=== PATIENT | male | born 1940 | race Caucasian/White ===

== ENCOUNTER 2024-05-03 18:33 | Inpatient (IN) | payer OTHER, SELFPAY ==
[2024-05-03 14:05] LABS: % Basophils 0.2 % (0-2); % Eosinophils 0.3 % (0-6); % Immature Granulocytes 0.4 % (0-0.5); % Lymphocytes 9.5 % (20.5-51.1); % Monocytes 7.6 % (1.7-9.3); Absolute Eosinophils 0.1 10^3/uL (0-0.7); Absolute Immature Granulocytes 0.1 10^3/uL (0-0.05); Absolute Lymphocytes 1.7 10^3/uL (1.2-3.4); Absolute Monocytes 1.4 10^3/uL (0.1-0.6); Absolute Neutrophils 15.1 10^3/uL (1.4-6.5); Hematocrit 38.1 % (39.0-52.0); Mean Corp Hgb Conc. 34.1 g/dL (33.0-37.0); Mean Corpuscular Hgb 30.3 pg (27.0-31.0); Mean Corpuscular Volume 88.8 fL (80.0-94.0); Mean Platelet Volume 10.5 fL (7.4-10.4); Nucleated Red Blood Cells % 0 % (-); Platelet Count 230 10^3/uL (130-400); Red Blood Cell Count 4.29 10^6/uL (4.70-6.10); Red Cell Dist. Width 14.1 % (11.5-14.5); White Blood Cell Count 18.4 10^3/uL (4.8-10.8)
[2024-05-03 14:55] LABS: ALT (SGPT) 16 U/L (0-50); AST (SGOT) 29 U/L (17-59); Albumin 3.8 g/dl (3.5-5.0); Alkaline Phosphatase 87 U/L (38-126); Blood Urea Nitrogen 30 mg/dl (9-20); Calcium 9.4 mg/dl (8.4-10.2); Carbon Dioxide 27 mmol/L (22-30); Chloride 97 mmol/L (98-107); Glucose 120 mg/dl (70-99); Potassium 3.2 mmol/L (3.5-5.1); Sodium 134 mmol/L (135-145); Total Bilirubin 1.9 mg/dl (0.2-1.3); Total Protein 6.7 g/dl (6.3-8.2); eGFR 49.25
--- NOTE | 2024-05-03 15:21 | ED.GENMED ---
History of Present Illness
General
Chief Complaint: Weakness
Source: patient and spouse
Exam Limitations: none
Time Seen by Provider: 05/03/24 15:06
Nursing documentation reviewed up to this point in time: agreed with
History of Present Illness
History of Present Illness:
83-year-old male with a past medical history of hypertension, hyperlipidemia, PE on Eliquis who presents to the emergency department with his for evaluation of weakness. Patient had significant fall about 3 months ago down 17 stairs and was
seen at [facility]�he had no serious injuries but had some neck pain the fall had profound weakness/fatigue after the fall. Patient was seeing physical therapy and was making his steady gradual improvement until a few days ago when
he had another trip and fall this time from ground-level while on vacation. He sustained a serious injury to the left knee and had frontal head trauma. He was apparently seen in the emergency room in [place]�apparently left patellar
fracture (per report, ~10mm separation) but no other serious injuries. He had lacerations to the forehead that were repaired with sutures and he had his tetanus updated. He was ultimately discharged home. He returned home last night but says
that he has been so profoundly weak and limited due to his left knee injury that they are unable to care for him and he is unable to care for himself. The patient admits to feeling weak and says that his left knee hurts with certain movements but
denies any other specific complaints.
Review of Systems
Review of Systems
All Other Systems: ROS reviewed and negative except as documented in HPI and ROS
Constitutional: Reports fatigue; Denies fever
Respiratory: Denies trouble breathing
Cardiac: Denies chest pain
ABD/GI: Denies abdominal pain or vomiting
Musculoskeletal: Reports joint pain and neck pain; Denies back pain
Neurological: Denies headache
Phy Exam
Physical Exam
Physical Exam:
General: Laying in bed eyes open but wakes to my entering, oriented x 3 and not in distress
Head: Normocephalic, forehead lacerations repaired with stitches no signs of acute infection
Eyes: Conjunctiva normal, EOMI
Throat: Airway intact, handling secretions
Neck: Trachea midline, supple without meningismus
Lungs: Mild tachypnea, normal pulse ox on room air, lungs clear to auscultation bilaterally, no wheezing, rales, rhonchi
Heart: Tachycardia with regular rhythm, no murmurs, gallops, or rubs
Abd: Soft, non distended, nontender
Neuro: No gross deficits
Skin: Lacerations as above, no signs of infection
Extremities: Patient has bruising and swelling of left knee, tenderness of left patella, limited ROM in left knee due to pain; no signs of acute trauma to rest of extremities; extremities are warm and well perfused
Scores
Heart Failure Risk
Heart Failure Risk Score: Not Applicable
Heart Score for Chest Pain Patients
STEMI patient?: Not applicable
Withdrawal Assessment of Alcohol
Withdrawal Assessment Completed?: Not applicable
Course
Orders/Labs/Results
Orders:
Orders
05/03/24 13:46
Electrocardiogram (*1) Urgent
Reason for Study: Fatigue / Weakness
EKG- Treatment ONCE
05/03/24 13:54
Complete Blood Count/With Diff Urgent
Comprehensive Metabolic Panel Urgent
05/03/24 15:20
Electrocardiogram (*1) Urgent
Reason for Study: Fatigue / Weakness
Case Management Consult ONCE
Case Management Consult: Detention Placement
EKG- Treatment ONCE
Urinalysis Reflex To Culture Urgent
Date Specimen was Collected: 05/03/24
Time Specimen was Collected: 15:51
CR Chest Portable - 1 View Urgent
Comment:
Reason For Exam: tachpnea, tachycardia, weakness
Reason Study Needs to be Portable: Unable to Transport
Pt Eval And Treat Urgent
Activity Level: With Assistance
05/03/24 15:21
0.9% Sodium Chloride 1000 ml [Nss] 1,000 ml IV BOLUS
Potassium Chloride [KCl] 40 meq PO NOW STA
Abnormal Lab Results
05/03/24
13:54
WBC 18.4 H 10^3/uL
(4.8-10.8)
RBC 4.29 L 10^6/uL
(4.70-6.10)
Hct 38.1 L %
(39.0-52.0)
MPV 10.5 H fL
(7.4-10.4)
Abs Immat Gran (auto) 0.1 H 10^3/uL
(0-0.05)
Absolute Neuts (auto) 15.1 H 10^3/uL
(1.4-6.5)
Absolute Monos (auto) 1.4 H 10^3/uL
(0.1-0.6)
Neutrophils % 82.0 H %
(42.2-75.2)
Lymphocytes % 9.5 L %
(20.5-51.1)
Sodium 134 L mmol/L
(135-145)
Potassium 3.2 L mmol/L
(3.5-5.1)
Chloride 97 L mmol/L
(98-107)
BUN 30 H mg/dl
(9-20)
Creatinine 1.4 H mg/dL
(0.7-1.3)
Glucose 120 H mg/dl
(70-99)
Total Bilirubin 1.9 H mg/dl
(0.2-1.3)
05/03/24 13:54
05/03/24 13:54
Vital Signs
Initial and Last Documented VS:
Initial Vital Signs
Temp Pulse Resp Pulse Ox
36.7 C 95 16 98
05/03/24 13:43 05/03/24 13:43 05/03/24 13:43 05/03/24 13:43
Last Documented Vital Signs
Temp Pulse Resp BP Pulse Ox
36.7 C 95 16 114/61 98
05/03/24 13:43 05/03/24 13:43 05/03/24 13:43 05/03/24 17:04 05/03/24 13:43
MDM/Problems Addressed
Differential Diagnosis Includes:
Weakness: Physical deconditioning, anemia, dehydration, electrolyte derangement, infection
MDM/Problems Addressed:
83-year-old male with history as documented presents for evaluation of profound weakness and inability to care for himself in the setting of multiple recent falls. He has tachypnea and tachycardia but otherwise normal vital signs. His physical
exam is as above. Will plan to check basic lab work including a CBC, CMP, urinalysis. Will check a chest x-ray and an EKG. Will provide IV fluids. Consult to physical therapy and case management.
Labs reviewed: CBC shows a leukocytosis to 18�no clear infectious source could be hemoconcentration or reactive. His CMP shows JENNIFER with a creatinine of 1.4 and a potassium of 3.2�given IV fluids and p.o. potassium. Chest x-ray shows no acute
disease. EKG shows a sinus rhythm. Awaiting urinalysis. Patient was seen by PT and recommended for inpatient rehab. Case management at bedside, unable to place today will work on placement over the next 24 to 48 hours. Admit to the hospitalist
service pending placement. Case discussed with hospitalist for admission.
*Pulse Oximetry
Patient hypoxic: no
*Critical Care Note
Total Time (30-74mins, 75-104mins- exclusive of procedures): Not Applicable
Data Reviewed
Review of Other/Old Records Reveals: Radiology Studies (reviewed external radiology reports from hospital in [place] (obtained via fax))
Source: patient and records
Patient Management
Social determinants of health affecting care: Living situation
Discussion with other providers: Hospitalist (Discussed with hospitalist) and Other (Discussed with rn field case manager, discussed with physical therapist)
Escalation/DeEscalation of care consider admission/obs:
Admission indicated
ED Attending Note
-
Portions of this chart may have been created with voice recognition software.� Occasional wrong word or��sound alike� substitutions may have occurred due to the inherent limitations of voice recognition software.
Discharge Plan
Departure
Patient Disposition: Admit
Date of Disposition: 05/03/24
Time of Disposition: 17:07
Admit to doctor: Paolo
Presentation/result/management discussed w/ accepting MD/DO: Hospitalist
Discharge Problem:
Fracture of left patella, Weakness generalized, Physical deconditioning
Referrals:
Gale Kaplan NP [Family Provider] -
Interventions
Interventions:
*Risk Screen - Suicide Last Done: 05/03/24 15:52
*General Assessment Last Done: 05/03/24 15:52
*Neglect/Abuse Screening Last Done: 05/03/24 15:52
ED- Fall Risk Assessment Last Done: 05/03/24 15:52
ED- Cardiac Assessment Last Done: 05/03/24 15:52
ED- Neurological Assessment Last Done: 05/03/24 15:52
ED- Pulmonary Assessment Last Done: 05/03/24 15:52
Discharge Date and Time
Print Language: GHANAIAN
[2024-05-03] MEDS: KCL 40 MEQ PO (15:30)
[2024-05-03] MEDS: NSS 1000 IV ×2 (15:38→21:49)
[2024-05-03 15:52] VITALS: BMI 27.5
--- NOTE | 2024-05-03 16:25 | CM ---
CM following re: discharge planning.
CM consulted to assist pt with SNF placement.
Reviewed pt's chart, met with pt. Pt's spouse Peyton and daughter at bedside.
Pt is an 83 year old male, arrived to ED with primary concerns of weakness.
Pt lives with spouse in [facility] [place] [facility], 2SH, 2 steps to enter, has 4 supportive children. 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 Pt's spouse stated she wants the best SNF for her and following SNFs
preferred: [facility], [facility], [facility] and/or [facility]. Pt's spouse is aware that pt will be seen by PT and OT and CM will follow up with their recommendations.
Pt has [employer] Medicare insurance. Policy: [id number]
PCP: Gale Kaplan
Pharmacy: [facility]
D/C plan: preferred SNF. CM will make a referral after PT/OT evaluations.
CM will follow to assist pt with discharge to a preferred SNF.
[2024-05-03 16:50] VITALS: BP 105/65; BP 130/60; PULSE 84; O2SAT 97
[2024-05-03 17:04] VITALS: BP 114/61
[2024-05-03 17:05] VITALS: BP 101/64
--- NOTE | 2024-05-03 17:23 | HPS.HSE ---
Addendum entered and electronically signed by MARCIE Rogers 05/03/24 19:38:
Records requested from [facility] for CT PE study and pulmonary consult from December proximal January 2024 to evaluate patient's PE he is on Eliquis for
Patient will require surgery for patellar fracture
Discussed case with Dr. Arianne Chapman who states can hold Eliquis for 48 hours patient did take this morning 05/03/2024 then placed on heparin gtt 05/05/2024 and pause heparin before procedure
Hold current Eliquis
-Will start heparin on 05/05/2024
-[facility] will look at OR schedule for possible 05/07/2024 OR
Addendum entered and electronically signed by MARCIE Rogers 05/03/24 19:03:
Patellar fracture left knee
Left knee joint effusion
Per Ortho check CT left knee
Nonweightbearing
Knee immobilizer worn at all times
Will require eventual surgery can be done outpatient once he is able to be off Eliquis for 24 to 48 hours
(Patient will need to follow-up with his pulmonary doctor at [facility] who placed him on Eliquis for PE in January)
Addendum entered and electronically signed by Freedom Boone MD 05/03/24 18:30:
.
Original Note:
Family Physician
<MARCIE Rogers - Last Filed: 05/03/24 18:29>
-
Family Physician: Gale Kaplan NP
Chief Complaint
<MARCIE Rogers - Last Filed: 05/03/24 18:29>
-
Lethargy, profound weakness, decreased oral intake, left knee pain status post patellar fracture
History of Present Illness
83-year-old male from home with his due to profound weakness, decreased eating, drinking limited mobility due to recent left knee injury and with patient unable to care for himself. The patient sustained a fall on Tuesday where his
believes his foot hit a piece of furniture launching him into a metal door where he struck his head and his left knee. While on vacation in [place]. He was seen in the ER in [place] and told he had a left patellar fracture per report
10 mm separation including lacerations to the forehead that were repaired with sutures along with an updated tetanus booster. She reports he has been using a wheelchair on vacation they drove home last night but he is unable to stand and bear
weight in their home with his knee immobilizer. He has been having so much pain in his left knee . He fell 3 months ago and seen at [facility] 3 months ago down 17 stairs but did not sustain any serious injury except increased kyphosis
of his cervical spine. 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 Since then he was walking with a walker then to cane with steady gait until his fall 4 days ago. He is very lethargic complains of generalized
weakness, left knee pain. He denies headache, blurred vision, chest pain, palpitations, shortness breath, cough, abdominal pain, nausea, vomiting, diarrhea, fever, chills. During exam he falls asleep appears to have episodes of apnea. His
states he has snored for many years but has never had a formal sleep study. He has past medical history of hypertension, hyperlipidemia, fall with rib fracture and pulmonary embolism 3 months ago was placed on oral Eliquis 5 mg twice daily until
May 26.
Medical History
<MARCIE Rogers - Last Filed: 05/03/24 18:29>
Past Medical History
Past Medical History: Reports Other
Additional Past Medical History:
HTN
HLD
Prostate cancer stage IV Dx 7 years ago [facility] on hormonal therapy/prednisone
Pulmonary embolism January 2024 is on Eliquis until May 26
Past Surgical History: Reports None
Social History
Tobacco: Non-smoker
Alcohol: None
Drug: None
Personal:
Living: With Family
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
Family History
Family History: Not pertinent
Allergies / Home Medications
Allergies reflects when Allergies were last updated in [facility].
Home Medications with original date entered in [facility]
Allergy/Medication List:
Allergies
Allergy/AdvReac Type Severity Reaction Status Date / Time
No Known Allergies Allergy Verified 05/03/24 13:46
Home Medications
abiraterone 250 mg tablet 750 mg PO QPM 05/03/24
amlodipine 5 mg tablet 5 mg PO HS 05/03/24
apixaban 5 mg tablet (Eliquis) 5 mg PO BID 05/03/24
lisinopril 20 mg tablet 20 mg PO HS 05/03/24
pravastatin 80 mg tablet 40 mg PO HS 05/03/24
prednisone 5 mg tablet 5 mg PO HS 05/03/24
sennosides 8.6 mg tablet (Senokot) 8.6 mg PO DAILY 05/03/24
therapeutic multivitamin 1 tab PO DAILY 05/03/24
Review of Systems
Fredericklt;MARCIE Rogers - Last Filed: 05/03/24 18:29>
-
History Source: Patient and Family ( Peyton at bedside)
Constitutional: Reports Other (Profound lethargy, decreased oral intake)
EENT: Reports Other (Dry oral mucosa, sutures intact to forehead)
Respiratory: Denies Cough or Trouble Breathing
Cardiac: Denies Chest Pain, Diaphoresis, Palpitations or Syncope
Abdomen/GI: Denies Abdominal Pain, Nausea, Vomiting, Diarrhea or Constipated
: Denies Dysuria, Frequency, Flank Pain, Incontinence or Difficulty Voiding
Musculoskeletal: Reports Joint Pain and Joint Swelling (Left knee swelling from recent patellar fracture Limited range of motion to 30 degrees medial collateral tenderness with stress test minimal knee effusion)
Skin: Denies Itching or Rash
Neurological: Reports Weakness (Generalized); Denies Dizzy or Headache
Endocrine: Reports No Symptoms
Hematologic/Lymphatic: Reports No Symptoms
Psych: Reports Calm
Physical Exam
<MARCIE Rogers - Last Filed: 05/03/24 18:29>
Vital Signs
Vital Signs
Temp Pulse Resp BP Pulse Ox
98.0 F 90 22 101/64 97
05/03/24 13:43 05/03/24 17:15 05/03/24 17:15 05/03/24 17:05 05/03/24 17:15
Physical Exam
General: Other (Lethargic); No Fever or Chills
HEENT: NormoCephalic, Anicteric, PERRLA, Armour Conjunctivae and Other (Dry oral mucosa, sutures intact to forehead that were placed on 04/30/2024)
Respiratory: Clear; No Wheezes, Rales or Rhonchi
Cardiac: S1/S2 and Regular Rhythm; No Murmur, Rub, Gallop or Peripheral Edema
Breast: Deferred by me
GI: Soft, Non Tender, Non Distended and Normal Bowel Sounds
Rectal: Deferred by Provider
Genito-urinary: Deferred by me
Musculoskeletal: No Clubbing, No Cyanosis and Edema, Left Lower Extremity (Left knee swelling from recent patellar fracture Limited range of motion to 30 degrees medial collateral tenderness with stress test minimal knee effusion); No Edema, Left
Upper Extremity, Edema, Right Upper Extremity or Edema, Right Lower Extremity
Skin: Warm, Dry and Other (Sutures intact to forehead); No Rash
Neuro: No Sensory Deficits and Other (Lethargic, falls asleep during exam but when awoken is oriented x 3 reports is tired has decreased appetite and left knee pain); No DTR's Intact & Symmetrical, Slurred Speech, Facial Droop, Tremors or Sedated
Psych: Calm
Laboratory Results
<MARCIE Rogers - Last Filed: 05/03/24 18:29>
-
05/03/24 13:54
05/03/24 13:54
Laboratory Results
Total Bilirubin 1.9 mg/dl (0.2-1.3) H 05/03/24 13:54
AST 29 U/L (17-59) 05/03/24 13:54
ALT 16 U/L (0-50) 05/03/24 13:54
Alkaline Phosphatase 87 U/L (38-126) 05/03/24 13:54
Impression/Plan
<MARCIE Rogers - Last Filed: 05/03/24 18:29>
-
Impression/plan:
Admit to telemetry
#Acute leukocytosis unclear etiology concern for underlying bacterial source
WBC 18.4 with left shift, afebrile, HR 95, 114/61
-CXR negative
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
CXR: No acute cardiopulmonary disease
EKG : NSR with sinus arrhythmia RBBB 95 bpm, QTc 500 MS no previous EKGs
#Increased lethargy with recent fall on Eliquis and sutures to forehead poa concern for post concussive syndrome versus bleeding
#Mechanical fall 05/01/2024 with forehead laceration and suture repair
--Sutures to be removed to forehead approximately 3 to 5 days(05/06 - 05/09/2024)--
Will repeat CT head given patient is on Eliquis( reports his CT 4 days ago was normal at [facility])
#Hypokalemia-euvolemic
K3.2
-Will give KCl 40 mEq p.o.
-Follow BMP
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
Creat 1.4/bun 30 no prior labs available
-Decreased oral intake over the past 4 days
-Hold lisinopril 20 mg daily
-1 L NSS given in ER
-IV NSS 80 cc/h
-Follow BMP
#Recent mechanical fall with left patellar fracture
Fall was 4 days ago 04/30/2024
-Use knee immobilizer
-X-ray left knee
-Consult Ortho
-Tylenol as needed
-PT/OT/case management eval
#Episodes of apnea while at rest
Monitor nocturnal pulse ox
-Recommend outpatient sleep study eval
#HTN�benign
BP 101/64
Will hold lisinopril 20 mg daily, Norvasc 5 mg daily
#HLD
-Continue pravastatin 40 mg daily
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
-Patient takes daily hormonal therapy Abiraterone acetate to 50 mg 3 times daily along with prednisone 5 mg daily for the last 7 years
He follows at [facility]
DVT prophylaxis
Continue TORCH BRAZER Eliquis if CT head negative
Full code
<Freedom Boone MD - Last Filed: 05/03/24 18:28>
-
Impression/plan:
Admit to telemetry
#Acute leukocytosis unclear etiology concern for underlying bacterial source
WBC 18.4 with left shift, afebrile, HR 95, 114/61
-CXR negative
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
CXR: No acute cardiopulmonary disease
EKG : NSR with sinus arrhythmia RBBB 95 bpm, QTc 500 MS no previous EKGs
#Increased lethargy with recent fall on Eliquis and sutures to forehead
#Mechanical fall 05/01/2024 with forehead laceration and suture repair
Sutures to be removed to forehead approximately 3 to 5 days(05/06 - 05/09/2024)
Will repeat CT head given patient is on Eliquis( reports his CT 4 days ago was normal at [facility])
#Hypokalemia-euvolemic
K3.2
-Will give KCl 40 mEq p.o.
-Follow BMP
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
Creat 1.4/bun 30 no prior labs available
-Decreased oral intake over the past 4 days
-Hold lisinopril 20 mg daily
-1 L NSS given in ER
-IV NSS 80 cc/h
-Follow BMP
#Recent mechanical fall with left patellar fracture
Fall was 4 days ago 04/30/2024
-Use knee immobilizer
-X-ray left knee
-Consult Ortho
-Tylenol as needed
-PT/OT/case management eval
#Episodes of apnea while at rest
Monitor nocturnal pulse ox
Recommend outpatient sleep study eval
#HTN�benign
BP 101/64
Will hold lisinopril 20 mg daily, Norvasc 5 mg daily
#HLD
-Continue pravastatin 40 mg daily
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
-Patient takes daily hormonal therapy Abiraterone acetate to 50 mg 3 times daily along with prednisone 5 mg daily for the last 7 years
He follows at [facility]
DVT prophylaxis
Continue TORCH BRAZER Eliquis
Full code
I saw and examined the patient.
The TRENCH PIPE LAYER HELPER or PA's note was reviewed and I agree with the note.
Comment:
History taken from the at bedside
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
He was found to have leukocytosis, elevated creatinine and hypokalemia with lethargy
I am seeing him in the ER.
Physical Exam
General: Other (Lethargic); No Fever or Chills
HEENT: NormoCephalic, (Dry oral mucosa, sutures intact to forehead that were placed on 04/30/2024)
Respiratory: Clear; No Wheezes, Rales or Rhonchi
Cardiac: S1/S2 and Regular Rhythm; No Murmur, Rub, Gallop or Peripheral Edema
GI: Soft, Non Tender, Non Distended and Normal Bowel Sounds
Genito-urinary: No flank tenderness
Musculoskeletal: No Clubbing, No Cyanosis and Edema, Left Lower Extremity (Left knee swelling from recent patellar fracture Limited range of motion to 30 degrees medial collateral tenderness with stress test minimal knee effusion); No Edema, Left
Upper Extremity, Edema, Right Upper Extremity or Edema, Right Lower Extremity
Skin: Warm, Dry and Other (Sutures intact to forehead); No Rash
Neuro: No Sensory Deficits and Other (Lethargic, falls asleep during exam but when awoken is oriented x 3 reports is tired has decreased appetite and left knee pain); No DTR's Intact & Symmetrical, Slurred Speech, Facial Droop, Tremors or Sedated
Psych: Calm
#Change in mental status,
#Increased lethargy with recent fall on Eliquis and sutures to forehead
#Mechanical fall 05/01/2024 with forehead laceration and suture repair
Sutures to be removed to forehead approximately 3 to 5 days(05/06 - 05/09/2024)
( reports his CT 4 days ago was normal at [facility])
reported that patient was traveling for more than 10 hours in the car
He is able to answer questions appropriately and oriented to self and surroundings but
Recent fall and Eliquis intake , will do stat head CT
Possible concussion from recent fall in [place] 4 days ago
Family denied seizure or loss of consciousness
Patient denies headache
#acute leukocytosis unclear etiology concern for underlying bacterial source
WBC 18.4 with left shift, afebrile, HR 95, 114/61
-CXR negative
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
CXR: No acute cardiopulmonary disease
EKG : NSR with sinus arrhythmia RBBB 95 bpm, QTc 500 MS no previous EKGs
#Hypokalemia-euvolemic
K3.2
-Will give KCl 40 mEq p.o.
-Follow BMP
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
Creat 1.4/bun 30 no prior labs available
-Decreased oral intake over the past 4 days
-Hold lisinopril 20 mg daily
-1 L NSS given in ER
-IV NSS 80 cc/h
-Follow BMP
#Recent mechanical fall with left patellar fracture
Fall was 4 days ago 04/30/2024
-Use knee immobilizer
-X-ray left knee
-Consult Ortho
-Tylenol as needed
-PT/OT/case management eval
#Episodes of apnea while at rest
Monitor nocturnal pulse ox
Recommend outpatient sleep study eval
#HTN�benign
BP 101/64
Will hold lisinopril 20 mg daily, Norvasc 5 mg daily
#HLD
-Continue pravastatin 40 mg daily
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
-Patient takes daily hormonal therapy Abiraterone acetate to 50 mg 3 times daily along with prednisone 5 mg daily for the last 7 years
He follows at [facility]
DVT prophylaxis
Continue TORCH BRAZER Eliquis
Full code
Total time spent to see the patient, examine the patient, review data and lab results, and discuss the treatment plan with patient, ER doctor, and nurse around 75 minutes
[2024-05-03 18:00] VITALS: BP 113/48
[2024-05-03 20:08] LABS: Urine Albumin Trace (Neg - Trace); Urine Bilirubin Negative (Negative); Urine Character Slightly Cloudy (Clear); Urine Color Amber; Urine Glucose Negative (Negative); Urine Ketone Negative (Negative); Urine Leukocyte Negative (Negative); Urine Nitrite Negative (Negative); Urine Occult Blood 1+ (Negative); Urine Urobilinogen Negative (Neg - 1+)
[2024-05-03 20:22] LABS: Urine Bacteria Many (Negative); Urine White Cell 0-2 /HPF (0-5)
--- NOTE | 2024-05-03 20:36 | W.PN.UPDATE ---
Update Note
Progress Note Update
Patient seen and evaluated in the ED. Full H&P consult to follow. Transverse displaced patella fracture after fall on Tuesday. Unable to ambulate since. Reports weakness since a fall several months ago and seen at [facility] for
fracture at that time frame. He denies any significant chronic pain in the knee but may be relative to the reason that he fell previously.
-Neurovascular intact closed injury. Denies any neuropathy at baseline. Community ambulator without assist devices at baseline
-Imaging was shown and reviewed with the patient and family. We discussed indication for operative invention if there is lack of an extensor mechanism and it may be intact even though there is some displacement. After discussion we will continue
with a diagnostic aspiration of his left knee and subsequent administration of intra-articular local anesthetic.
-Utilizing sterile technique under ultrasound guidance using a superolateral approach 30 cc of hemarthrosis was aspirated of the left knee; this needle was maintained and subsequently 10 cc of lidocaine 1% and 10 cc of 0.5% bupivacaine was injected
without complication under image guidance. Needle was removed, the knee was cleaned, gauze and Marvin wrap was applied and bleeding was controlled. After period of 5 minutes the patient was able to demonstrated intact maintains knee extension without
pain.
-Discussed with patient with an intact extensor mechanism can consider both operative or nonoperative treatments. Will further discuss with attending. If going to the OR will require Eliquis washout for hold for 3 days; please hold for the time
being if possible while pending for operative consideration
-Nonweightbearing to left lower extremity at this time
-Knee immobilizer when up and moving otherwise maintain in extension
-Pending CT scan and further discussion for operative and nonoperative consideration
[2024-05-03 20:56] VITALS: BP 136/67
--- NOTE | 2024-05-03 21:00 | PTCARENOTE ---
Pt from ED A+OX3 drowsy. Admission completed with spouse at bedside. VSS pt reports pain 5/10 L knee, ronnie wrap in place, denies need for pain medication at this time. Family is requesting patient get 1800 dose of abiraterone- [employer] aware order
placed. Care is ongoing.
[2024-05-03] MEDS: PRAVACHOL 40 MG PO (21:48)
[2024-05-03] MEDS: DELTASONE 5 MG PO (21:48)
[2024-05-03] MEDS: NON-FORMULARY ITEM 750 MG PO (23:17)
[2024-05-04] VITALS (10 sets, daily range): BP systolic 127–149; BP diastolic 59–80; PULSE 84–86; O2SAT 97
[2024-05-04] MEDS: TYLENOL 650 MG PO ×2 (06:05→16:06)
[2024-05-04 07:21] LABS: COVID-19 Antigen Negative (Negative)
[2024-05-04 08:00] LABS: ALT (SGPT) 16 U/L (0-50); AST (SGOT) 26 U/L (17-59); Albumin 2.9 g/dl (3.5-5.0); Alkaline Phosphatase 75 U/L (38-126); Blood Urea Nitrogen 26 mg/dl (9-20); Calcium 8.7 mg/dl (8.4-10.2); Carbon Dioxide 24 mmol/L (22-30); Chloride 105 mmol/L (98-107); Estimated Creatinine Clearance 46 ml/min; Glucose 98 mg/dl (70-99); HDL Cholesterol 34 mg/dl; LDL Cholesterol, Calculated 68 mg/dl; Potassium 3.6 mmol/L (3.5-5.1); Sodium 135 mmol/L (135-145); Total Bilirubin 1.3 mg/dl (0.2-1.3); Total Cholesterol 120 mg/dl (50-199); Total Protein 5.6 g/dl (6.3-8.2); Triglyceride 91 mg/dl (10-149); Very Low Density Lipoprotein 18 mg/dl (0-30); eGFR > 60.00
[2024-05-04 08:05] LABS: % Basophils 0.3 % (0-2); % Eosinophils 0.6 % (0-6); % Immature Granulocytes 0.6 % (0-0.5); % Lymphocytes 13.3 % (20.5-51.1); % Monocytes 9.4 % (1.7-9.3); % Neutrophils 75.8 % (42.2-75.2); Absolute Eosinophils 0.1 10^3/uL (0-0.7); Absolute Immature Granulocytes 0.1 10^3/uL (0-0.05); Absolute Lymphocytes 1.6 10^3/uL (1.2-3.4); Absolute Monocytes 1.1 10^3/uL (0.1-0.6); Hematocrit 31.4 % (39.0-52.0); Hemoglobin 10.9 g/dL (13.0-18.0); Mean Corp Hgb Conc. 34.7 g/dL (33.0-37.0); Mean Corpuscular Hgb 30.9 pg (27.0-31.0); Mean Platelet Volume 11.1 fL (7.4-10.4); Nucleated Red Blood Cells % 0 % (-); Platelet Count 186 10^3/uL (130-400); Red Blood Cell Count 3.53 10^6/uL (4.70-6.10); Red Cell Dist. Width 13.9 % (11.5-14.5); White Blood Cell Count 11.9 10^3/uL (4.8-10.8)
[2024-05-04] MEDS: NSS 1000 IV (09:52)
[2024-05-04] MEDS: MAXIPIME 1000 MG IV ×2 (09:53→20:33)
[2024-05-04] MEDS: THERAGRAN 1 TABLET PO (09:53)
[2024-05-04] MEDS: STERILE WATER FOR INJECTION 10 ML IV ×2 (09:53→20:33)
--- NOTE | 2024-05-04 10:01 | CON.PUL ---
Consultation
Consultation Request
Date/Time Consultation Requested: 05/03/20241924
Date/Time Consultation Performed: 05/04/2024932
Requesting Provider: Tasha JACK
Performing Provider: Nithin Javier MD
Reason for Consultation: History of PE; preoperative management for patellar fracture
Medical History
-
Chief Complaint: Fall
History of Present Illness:
83-year-old male with a past medical history of hypertension, hyperlipidemia, history of PE on Eliquis and history of prostate cancer on abiraterone who presents with fall 2 days ago. Patient fell while in [place] and was treated in their ER
and released. CT head was reportedly negative at that time. Patient is on blood thinner for history of PE. Patient has been having a difficulty performing daily activities so is now here in the ER for further evaluation. Vitals in the ER showed
he was afebrile to 98 �F, pulse rate 95, respiratory rate 16, BP 114/61 and SaO2 98% on room air. Labs showed leukocytosis to 18.4, hypokalemic to 3.2, and elevated creatinine of 1.4. CXR showed no acute cardiopulmonary disease. CT head showed no
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 CT of the LLE showed a displaced acute comminuted patellar fracture.
Patient was given IVF with NS 0.9% X1 liter in the ER + potassium chloride. He was admitted to the hospitalist service with orthopedic surgery consulted. Considering patient may be going to the OR but is on Eliquis, he was transitioned to heparin
drip. Pulmonary service now consulted for additional pre-operative recommendations in the setting of his history of a PE with possible upcoming orthopedic surgery.
When I saw the patient he was laying in bed, on room air breathing comfortably with daughter and at bedside. Patient doing well, left knee immobilizer in place. Apparently, the patient had fallen while they were at a hotel as he tripped over
furniture in the room. He otherwise can ambulate well without high risk of falling, as per patient and . The patient was diagnosed with an acute PE in January 2024 after he had fallen down steps at his home. They did see hematology afterwards
with Dr. Denny at [facility]. Apparently blood work was done showing that he was not a hypercoagulable risk. They did not have any specific blood work results however to confirm or deny this. The patient currently denies chest pain, shortness
of breath, headache, or abdominal pain. Of note the patient has been having fevers with Tmax over the last 12 hours of 102.1 �F.
PMHx: Hypertension, hyperlipidemia, PE (diagnosed January 2024 currently on Eliquis), and history of prostate cancer diagnosed about 7 years ago on hormone therapy and chronic prednisone (managed at [facility])
PSHx: None reported
Past Medical History
Past Medical History: Other (Above as per HPI)
Past Surgical History: Other (Above as per HPI)
Social History
Tobacco: Non-smoker
Alcohol: None
Drug: None
Personal:
Living: With Family
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
Family History
Family History: Reviewed & Not Pertinent
Allergies / Home Medications
Allergies
Allergy/AdvReac Type Severity Reaction Status Date / Time
No Known Allergies Allergy Verified 05/03/24 13:46
Home Medications
�Medication �Instructions �Recorded �Confirmed �Last Taken �Type
abiraterone 250 mg tablet 750 mg PO QPM Cancer 05/03/24 05/03/24 05/02/24 History
amlodipine 5 mg tablet 5 mg PO HS Blood Pressure 05/03/24 05/03/24 05/02/24 History
apixaban 5 mg tablet (Eliquis) 5 mg PO BID Blood Clot 05/03/24 05/03/24 05/03/24 History
Prevention/Tx
lisinopril 20 mg tablet 20 mg PO HS Blood Pressure 05/03/24 05/03/24 05/02/24 History
pravastatin 80 mg tablet 40 mg PO HS High Cholesterol 05/03/24 05/03/2424 History
prednisone 5 mg tablet 5 mg PO HS Anti-Inflammatory 05/03/24 05/03/24 05/02/24 History
sennosides 8.6 mg tablet (Senokot) 8.6 mg PO DAILY Constipation 05/03/24 05/03/24 05/03/24 History
therapeutic multivitamin 1 tab PO DAILY Supplement 05/03/24 05/03/24 05/03/24 History
Review of Systems
-
History Source: Patient
All other systems: Negative unless noted
Vitals / Labs / Diagnostic Testing
Vital Signs
Temp Pulse Resp BP Pulse Ox
97.9 F 82 22 149/78 100
05/04/24 11:23 05/04/24 11:23 05/04/24 11:23 05/04/24 11:23 05/04/24 11:23
Lab Data
05/04/24 07:07
05/04/24 07:07
Diagnostic Testing:
Physical Exam
-
HEENT: Normocephalic and Anicteric
Cardiovascular: S1/S2 and Peripheral Edema (+1 left lower extremity edema; no edema in the RLE)
Respiratory: Wheeze (Negative), Rales (Bibasilar), Rhonchi (Negative) and Non-Labored Respirations
GI: Soft, Non Tender and Normal Bowel Sounds
Neurology: Awake, Alert and Tremors (Negative)
Skin: Warm, Dry and Other (Left sided knee immobilizer in place)
General: Respiratory Distress (Negative), Comfortable, Chills (Negative) and Sweats (Negative)
Assessment
-
Assessment: 83-year-old male with a past medical history of hypertension, hyperlipidemia, history of PE on Eliquis and history of prostate cancer on abiraterone who presents with fall 2 days ago. Patient fell while in [place] and was
treated in their ER and released. CT head was reportedly negative at that time. Patient is on blood thinner for history of PE. Patient has been having a difficulty performing daily activities so is now here in the ER for further evaluation.
Vitals in the ER showed he was afebrile to 98 �F, pulse rate 95, respiratory rate 16, BP 114/61 and SaO2 98% on room air. Labs showed leukocytosis to 18.4, hypokalemic to 3.2, and elevated creatinine of 1.4. CXR showed no acute cardiopulmonary
disease. 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 CT of the LLE showed a displaced acute
comminuted patellar fracture. Patient was given IVF with NS 0.9% X1 liter in the ER + potassium chloride. He was admitted to the hospitalist service with orthopedic surgery consulted. Considering patient may be going to the OR but is on Eliquis,
he was transitioned to heparin drip. Pulmonary service now consulted for additional pre-operative recommendations in the setting of his history of a PE with possible upcoming orthopedic surgery.
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
Impression:
#Displaced acute comminuted left-sided patella fracture
#Febrile illness to 102.1 �F today and 100.7F early this AM
#Mechanical fall
#History of pulmonary embolism on Eliquis
#Anemia
#JENNIFER � improving
#At increased risk for JUDITH given reported apnea during sleep
#History of prostate cancer with spinal mets on hormone therapy with abiraterone acetate + chronic prednisone
Plan:
- Pain control and non-weightbearing status to left lower extremity
- Continue to hold Eliquis as patient may be going to the OR for surgical treatment of left patella fracture
- Continue heparin drip but monitor for hemarthrosis given no acute left-sided patella fracture
- Stop heparin drip about 4-6 hours prior to orthopedic surgery given the high risk for bleeding intra/postoperatively
- Considering he had a fall, perhaps being on blood thinners is more other risk than benefit; this should be discussed prior to placing him back onto Eliis and he should follow-up with his sheet heater helper after discharge
- Trend Hb, plt and aPTT q6hr while on heparin gtt
- transfuse if needed to keep Hb>7g/dL, plt>50k (given possible impending surgery)
- Would avoid surgery until he is afebrile for >12-24 hours in the event that he is becoming septic
- Antibiotic started by primary team due to fevers; follow-up blood culture + urine culture; check procalcitonin for trending power
- If fevers persist despite antibiotics then recheck left knee XR versus CT to assure no evidence of worsening synovitis, effusion or evidence of septic joint
- Maintain SpO2 >90-94% with supplemental O2 as needed
-Once fevers are controlled, then I believe he is optimized from pulmonary standpoint for surgery. Use low tidal volume strategy with 4�6cc/kg IBW, titrate FiO2 to maintain SpO2 >90-94%, early postoperative ambulation with DVT prophylaxis as long
as bleeding risk is not too high
- Incentive spirometer encouraged
- Replete electrolytes with K>4, Mg>2
- Maintain euglycemia with goal BG >100 and <180
- prn nebulized bronchodilators
- PT/OT
- DVT ppx: heparin gtt
Pulmonary service will continue to follow along. Upon discharge he should follow-up with his sheet heater helper at [facility] to discuss his management of his PE; we will get records from his accuracy expert, considering he now has a
left-sided patella fracture with increased DVT risk, he will need to remain on anticoagulation regardless. The original plan was to continue with systemic anticoagulation until May 2024, and I believe he should do just that considering his acute
left-sided patella fracture.
Total time spent today was 55 minutes for this encounter. Time includes reviewing laboratory test/imaging results, reviewing pertinent medical records, obtaining and reviewing medical history, performing an appropriate exam, ordering medications,
tests and procedures. Time also includes documentation of this encounter, coordinating patient care and communicating with other healthcare professionals. Total time does not include separately billed tests performed on this date of service.
Data:
LLE CT 05/03/2024: Displaced acute comminuted patellar fracture; Small suprapatellar joint effusion; mild lateral compartment chondrocalcinosis.
--- NOTE | 2024-05-04 10:58 | W.PN.HOSP.TC ---
Today's Communication/Plan
-
Patient wants to discuss with ortho in details regarding his knee and PT clarification
c/w UTI treatment
Do Bladder scan for retention
Monitor for fever
c/w PT recommendation, might need rehab
Assessment / Plan
Assessment / Plan
Physical Exam
General: Comfortable, not in distress. No Fever or Chills
HEENT: Normocephalic, sutures intact to forehead that were placed on 04/30/2024)
Respiratory: Clear; No Wheezes, Rales or Rhonchi
Cardiac: S1/S2
GI: Soft, Non Tender, Non Distended and Normal Bowel Sounds
Genito-urinary: No flank tenderness
Musculoskeletal: No Clubbing, No Cyanosis and Edema, Left Lower Extremity (Left knee in immobilizer.
Skin: Warm, Dry and Other (Sutures intact to forehead); No Rash
Neuro: AAOX3, followed commands.
Psych: Calm
#Change in mental status,
Likely toxic encephalopathy from lack of sleep, dehydration
now back to baseline
Family denied seizure or loss of consciousness
Patient denied headache
CT head no acute abnormalities.
#Mechanical fall 05/01/2024 with forehead laceration and suture repair
Sutures to be removed to forehead approximately 3 to 5 days(05/06 - 05/09/2024)
# Fever
acute leukocytosis unclear etiology concern for infection, could be UTI since urine was cloudy
WBC is coming down
Await urine and blood culture results
Place empirically on Cefepime
Negative COVID
-CXR negative
# History of pulmonary embolism.
Eliquis was held for possible need for orthopedic surgery. He was started on IV heparin
. Will stop IV heparin if no need for surgical intervention
I reached out to ortho
#Hypokalemia-euvolemic
resolved with KCl.
#JENNIFER
Seems not CKD history, ruled out
s/p IVF
#Recent mechanical fall with left patellar fracture
Fall was on 04/30/2024, visited ER in [place] where he was visiting.
-Use knee immobilizer
-X-ray left knee
-Tylenol as needed
-PT/OT/
CT showed displaced acute comminuted patellar fracture. Small suprapatellar joint effusion. Mild lateral compartment chondrocalcinosis.
Appreciate ortho input, so far await decision if surgery is to be considered.
#Episodes of apnea while at rest
Monitor nocturnal pulse ox
Recommend outpatient sleep study eval
#HTN�benign
resume home medications.
#HLD
-Continue pravastatin 40 mg daily
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
-Patient takes daily hormonal therapy Abiraterone acetate to 50 mg 3 times daily along with prednisone 5 mg daily for the last 7 years
He follows at [facility]
DVT prophylaxis
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
Full code
Total time spent to see the patient, examine the patient, review data and lab results, and discuss the treatment plan with patient, ortho doctor, and nurse around 55 minutes
Anticipated Discharge: 24 - 48 hours
Subjective/Interval History
-
Date of Service: May 04, 2024
More alert
No headache
No chest pain or sob
Objective Data
-
Labs:
Laboratory Results
05/04/24
07:07
WBC 11.9 H
Hgb 10.9 L
Hct 31.4 L
Plt Count 186
Sodium 135
Potassium 3.6
Chloride 105
Carbon Dioxide 24
BUN 26 H
Creatinine 1.1
Glucose 98
Calcium 8.7
Total Bilirubin 1.3
AST 26
ALT 16
Alkaline Phosphatase 75
Vital Signs:
Vital Signs
Temp Pulse Resp BP Pulse Ox
98.2 F 82 20 127/67 98
05/04/24 07:46 05/04/24 07:46 05/04/24 07:46 05/04/24 07:46 05/04/24 07:46
I&O
05/03/24 05/04/24 05/05/24
06:59 06:59 06:59
Intake Total 480 / 480
Balance 480 / 480
--- NOTE | 2024-05-04 12:21 | CM ---
Patient seen asleep, spoke with patients , Peyton. Referrals sent in [facility], awaiting accepting SNF. CM received consult for advance directive, reports she is not interested in this at this time. CM will continue to follow for all
discharge planning needs.
Plan; SNF pending accepting facility.
--- NOTE | 2024-05-04 12:52 | W.PN.UPDATE ---
Update Note
Progress Note Update
Interval update, full consult note pending. Patient seen and examined. He has a left patella fracture that would benefit from surgical stabilization. Case discussed with Dr. Spicer. Plan for surgery tomorrow morning (05/05/2024) with
Dannielle as long as medically cleared. Please continue to hold Eliquis if medically able. Maintain knee immobilizer to left lower extremity. Patient may ambulate with assistance while keeping the knee straight in the immobilizer. Further
recommendations to be made after surgery.
--- NOTE | 2024-05-04 14:30 | W.PN.UPDATE ---
Update Note
Progress Note Update
Patient seen and examined.
Radiographs reviewed.
History reviewed with the patient's family
Patient has been on Eliquis for 2 months for recent PE. He was travelling when he fell and sustained left patella fracture on Tuesday
After lengthy discussion, we agreed to proceed with surgical fixation of the left patella fracture.
Consent obtained. OR notified.
NPO after MN
[2024-05-04] MEDS: NON-FORMULARY ITEM 250 MG PO (17:28)
[2024-05-04] MEDS: NORVASC 5 MG PO (17:51)
[2024-05-04] MEDS: PRAVACHOL 40 MG PO (23:05)
[2024-05-04] MEDS: ZESTRIL 20 MG PO (23:05)
[2024-05-04] MEDS: DELTASONE 5 MG PO (23:05)
[2024-05-05] VITALS (14 sets, daily range): BP systolic 104–157; BP diastolic 52–84
[2024-05-05] MEDS: THERAGRAN PO (07:45)
[2024-05-05] MEDS: MAXIPIME IV (08:00)
[2024-05-05] MEDS: STERILE WATER FOR INJECTION IV (08:00)
[2024-05-05 08:31] LABS: % Basophils 0.5 % (0-2); % Eosinophils 0.8 % (0-6); % Immature Granulocytes 0.5 % (0-0.5); % Lymphocytes 12.4 % (20.5-51.1); % Neutrophils 75.8 % (42.2-75.2); Absolute Eosinophils 0.1 10^3/uL (0-0.7); Absolute Lymphocytes 1.1 10^3/uL (1.2-3.4); Absolute Monocytes 0.9 10^3/uL (0.1-0.6); Absolute Neutrophils 6.7 10^3/uL (1.4-6.5); Hematocrit 31.2 % (39.0-52.0); Hemoglobin 10.6 g/dL (13.0-18.0); Mean Corpuscular Hgb 29.7 pg (27.0-31.0); Mean Corpuscular Volume 87.4 fL (80.0-94.0); Nucleated Red Blood Cells % 0 % (-); Platelet Count 244 10^3/uL (130-400); Red Blood Cell Count 3.57 10^6/uL (4.70-6.10); Red Cell Dist. Width 13.5 % (11.5-14.5); White Blood Cell Count 8.8 10^3/uL (4.8-10.8)
[2024-05-05 09:12] LABS: ALT (SGPT) 22 U/L (0-50); AST (SGOT) 33 U/L (17-59); Alkaline Phosphatase 88 U/L (38-126); Blood Urea Nitrogen 20 mg/dl (9-20); Calcium 8.9 mg/dl (8.4-10.2); Carbon Dioxide 26 mmol/L (22-30); Chloride 104 mmol/L (98-107); Estimated Creatinine Clearance 56 ml/min; Glucose 101 mg/dl (70-99); Potassium 3.9 mmol/L (3.5-5.1); Sodium 138 mmol/L (135-145); Total Bilirubin 0.8 mg/dl (0.2-1.3); Total Protein 5.7 g/dl (6.3-8.2); eGFR > 60.00
--- NOTE | 2024-05-05 09:28 | W.IMMPOSTOP ---
Surgical Immed Post Op Note
-
Primary Surgeon: Dannielle
Cricket Coach: Jennifer Nunez PA-C
Pre-op Diagnosis: Left patella fracture
Post-op Diagnosis: Same
Procedure Performed: Left patella ORIF
Anesthesia Type: General
Specimen / Cultures: None
Estimated Blood Loss: 2cc
Complications: None
Operative Findings: Dictated [id number]
Plan:
- WBAT LLE with knee immobilizer
- Ok to resume Eliquis tomorrow AM
- PT/ OT
--- NOTE | 2024-05-05 10:01 | CM ---
CM reviewed chart- plan for OR today for ORIF L. patella
Will need post- op PT/OT orders once medically appropriate
SNF referrals previously sent and pending
Pt will require [employer] auth
Discharge Disposition- SNF pending [employer] auth
--- NOTE | 2024-05-05 10:42 | W.PN.PUL3 ---
Today's Communication / Plan
-
Doing well post procedure, resumed on IV heparin
OK to transition to Eliquis when cleared by ortho team
Will need to discuss timing of Eliquis as outpatient with hematology at [facility] (possible extension for total of 6 mos given new fx)
Otherwise, doing well from our perspective
PT/OT evals
No new recommendations
We will sign off at this time, please call with questions
Assessment
-
83-year-old male with a past medical history of hypertension, hyperlipidemia, history of PE on Eliquis and history of prostate cancer on abiraterone who presents with fall 2 days ago. Patient fell while in [place] and was treated in their ER
and released. CT head was reportedly negative at that time. Patient is on blood thinner for history of PE. Patient has been having a difficulty performing daily activities so is now here in the ER for further evaluation. Vitals in the ER showed
he was afebrile to 98 �F, pulse rate 95, respiratory rate 16, BP 114/61 and SaO2 98% on room air. Labs showed leukocytosis to 18.4, hypokalemic to 3.2, and elevated creatinine of 1.4. CXR showed no acute cardiopulmonary disease. CT head showed no
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 CT of the LLE showed a displaced acute comminuted patellar fracture.
Patient was given IVF with NS 0.9% X1 liter in the ER + potassium chloride. He was admitted to the hospitalist service with orthopedic surgery consulted. Considering patient may be going to the OR but is on Eliquis, he was transitioned to heparin
drip. Pulmonary service now consulted for additional pre-operative recommendations in the setting of his history of a PE with possible upcoming orthopedic surgery.
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
Impression:
#Displaced acute comminuted left-sided patella fracture
#Febrile illness to 102.1 �F today and 100.7F early this AM
#Mechanical fall
#History of pulmonary embolism on Eliquis
#Anemia
#JENNIFER � improving
#At increased risk for JUDITH given reported apnea during sleep
#History of prostate cancer with spinal mets on hormone therapy with abiraterone acetate + chronic prednisone
Plan:
Pain control and non-weightbearing status to left lower extremity
s/p ortho intervention 05/05
PT/OT
Continue to hold Eliquis resumed on IV heparin
Await when cleared from surgical perspective
Antibiotic started by primary team due to fevers; follow-up blood culture + urine culture
UA suggestive of UTI but culture negative
Complete course
Upon discharge he should follow-up with his Hematologst at [facility] to discuss his management of his PE
Discussed with he now has a left-sided patella fracture with increased DVT risk, he will need to remain on anticoagulation regardless.
The original plan was to continue with systemic anticoagulation until May 2024, and I believe he should do just that considering his acute left-sided patella fracture.
May need to extend for 6 mos but will need to discuss with OP team
- Incentive spirometer encouraged
- Replete electrolytes with K>4, Mg>2
- Maintain euglycemia with goal BG >100 and <180
- prn nebulized bronchodilators
- PT/OT
- DVT ppx: heparin gtt
Data:
LLE CT 05/03/2024: Displaced acute comminuted patellar fracture; Small suprapatellar joint effusion; mild lateral compartment chondrocalcinosis.
Subjective Data
-
Date of Service:
Date of Service: May 05, 2024
Chief Complaint: Pulmonary Follow Up
Subjective:
No new events ON, underwent procedure without event
Slightly confused post anesthesia
at bedside
Objective Data
Data Reviewed
Vital Signs / I&O / Oxygen:
Vital Signs
Temp Pulse Resp BP Pulse Ox
99.1 F 84 17 137/57 91
05/05/24 09:50 05/05/24 10:30 05/05/24 10:30 05/05/24 10:30 05/05/24 10:30
Intake and Output
05/04/24 05/05/24 05/06/24
06:59 06:59 06:59
Intake Total 480 / 480 240 / 240
Output Total 450 / 450
Balance 480 / 480 240 / 240 -450 / -450
SaO2 91
Nasal Cannula flow liters per 3
minute
Physical Exam
General: Comfortable and Other (NAD)
HEENT: Normocephalic, Anicteric and Moist Mucous Membranes
Cardiovascular: S1-S2 and Regular Rhythm
Respiratory: Clear and Non-Labored Respirations
GI: Soft, Non Distended and Non Tender
Neurology: Awake, Alert and Other (slightly confused)
Skin: Warm, Dry and Good Color
Labs/Micro/Reports
Lab Data
05/05/24 07:23
05/05/24 07:23
Microbiology
05/04/24 07:07 Blood/Venous Blood Culture - Preliminary
No Growth in 24 hours- Final report to follow
[2024-05-05] MEDS: ZOFRAN 4 MG IV (11:54)
--- NOTE | 2024-05-05 12:18 | W.PN.HOSP.TC ---
Today's Communication/Plan
-
.
Empiric cefepime
Bladder scan t monitor for retention
Adjust IVF need
Eliquis in AM
Assessment / Plan
Assessment / Plan
Physical Exam
General: Comfortable, not in distress. No Fever or Chills
HEENT: Normocephalic, sutures intact to forehead that were placed on 04/30/2024)
Respiratory: Clear; No Wheezes, Rales or Rhonchi
Cardiac: S1/S2
GI: Soft, Non Tender, Non Distended and Normal Bowel Sounds
Genito-urinary: No flank tenderness
Musculoskeletal: No Clubbing, No Cyanosis and Edema, Left Lower Extremity (Left knee in immobilizer.
Skin: Warm, Dry and Other (Sutures intact to forehead); No Rash
Neuro: AAOX3, followed commands.
Psych: Calm
# #Recent mechanical fall with left patellar fracture
Fall was on 04/30/2024, visited ER in [place] where he was visiting.
CT showed displaced acute comminuted patellar fracture. Small suprapatellar joint effusion. Mild lateral compartment chondrocalcinosis.
Appreciate ortho input, so far await decision if surgery is to be considered.
s/p Left patella ORIF by Dr loya on 05/05. No complications reported
#Change in mental status due to toxic encephalopathy from lack of sleep, dehydration
now back to baseline
Family denied seizure or loss of consciousness
Patient denied headache
CT head no acute abnormalities.
#Mechanical fall 05/01/2024 with forehead laceration and suture repair
Sutures to be removed to forehead approximately 3 to 5 days(05/06 - 05/09/2024)
# Fever and leukocytosis
acute leukocytosis unclear etiology concern for infection, could be UTI since urine was cloudy
WBC is normal now
Urine culture is no growth
Await blood culture
Placed empirically on Cefepime due to positive bacteria in blood. Will dc cefepime in am
Negative COVID
-CXR negative
# History of pulmonary embolism.
Eliquis was held for possible need for orthopedic surgery. He was started on IV heparin
. Stopped IV heparin if no need for surgical intervention
Patient was scheduled to finish Eliquis treatment on May 26(3 months after diagnosis of PE following a fall patient saw oncologist with [facility]) They want to follow-up with local oncologist. Ad[facility]
and transferrin documents to their office before their first visit with [facility].
Will resume Eliquis in AM, appreciate ortho input
#Hypokalemia-euvolemic
resolved with KCl.
#JENNIFER
Seems not CKD history, ruled out
s/p IVF
#Episodes of apnea while at rest
Monitor nocturnal pulse ox
Recommend outpatient sleep study eval
#HTN�benign
resume home medications.
#HLD
-Continue pravastatin 40 mg daily
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
-Patient takes daily hormonal therapy Abiraterone acetate to 50 mg 3 times daily along with prednisone 5 mg daily for the last 7 years
He follows at [facility]
DVT prophylaxis
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
Full code
Total time spent to see the patient, examine the patient, review data and lab results, and discuss the treatment plan with patient, ortho doctor, and nurse around 55 minutes
Anticipated Discharge: 24 - 48 hours
Subjective/Interval History
-
Date of Service: May 05, 2024
Post op
seen in room with at bed side
Objective Data
-
Labs:
Laboratory Results
05/05/24
07:23
WBC 8.8
Hgb 10.6 L
Hct 31.2 L
Plt Count 244 D
Sodium 138
Potassium 3.9
Chloride 104
Carbon Dioxide 26
BUN 20
Creatinine 0.9
Glucose 101 H
Calcium 8.9
Total Bilirubin 0.8
AST 33
ALT 22
Alkaline Phosphatase 88
Vital Signs:
Vital Signs
Temp Pulse Resp BP Pulse Ox
97.5 F 82 16 124/70 100
05/05/24 11:30 05/05/24 11:30 05/05/24 11:30 05/05/24 11:30 05/05/24 11:30
I&O
05/04/24 05/05/24 05/06/24
06:59 06:59 06:59
Intake Total 480 / 480 240 / 240 100 / 100
Output Total 450 / 450
Balance 480 / 480 240 / 240 -350 / -350
[2024-05-05] MEDS: TYLENOL 1000 MG PO ×2 (17:12→21:42)
[2024-05-05] MEDS: NON-FORMULARY ITEM 750 MG PO (17:15)
[2024-05-05] MEDS: NORVASC 5 MG PO (17:20)
[2024-05-05] MEDS: ANCEF 5 IV ×2 (17:20→23:02)
--- NOTE | 2024-05-05 18:43 | PTCARENOTE ---
Received patient from PACU at 1130. Pt on 4 L O2 via nasal cannula. Pt O2 sat 98%. Pt weaned to 2 L O2. Pulse OX 97%. Pt complained of nausea on arrival to floor. Medicated with IV Zofran with relief. Pt tolerated diet well. This afternoon
patient dangled on side of bed with assistance x1. IVF capped. Pt voided without difficulty. Made patient comfortable. Cont to assess patient status.
[2024-05-05] MEDS: COLACE 100 MG PO (21:41)
[2024-05-05] MEDS: NORMOSOL-R 1000 IV (21:41)
[2024-05-05] MEDS: NORMOSOL-R IV (21:41)
[2024-05-05] MEDS: DELTASONE 5 MG PO (21:42)
[2024-05-05] MEDS: ZESTRIL 20 MG PO (21:42)
[2024-05-05] MEDS: STERILE WATER FOR INJECTION 10 ML IV (21:42)
[2024-05-05] MEDS: PRAVACHOL 40 MG PO (21:42)
[2024-05-05] MEDS: MAXIPIME 1000 MG IV (21:42)
[2024-05-05 21:53] LABS: Glucose - Point of Care 151 mg/dl (70-99)
[2024-05-06 03:07] VITALS: BP 136/75
[2024-05-06] MEDS: NORMOSOL-R IV ×2 (05:21→17:02)
[2024-05-06 07:40] VITALS: BP 171/92
[2024-05-06 08:03] LABS: Hematocrit 31.8 % (39.0-52.0); Hemoglobin 10.8 g/dL (13.0-18.0); Mean Corpuscular Hgb 30.3 pg (27.0-31.0); Mean Corpuscular Volume 89.1 fL (80.0-94.0); Mean Platelet Volume 11.1 fL (7.4-10.4); Platelet Count 262 10^3/uL (130-400); Red Blood Cell Count 3.57 10^6/uL (4.70-6.10); Red Cell Dist. Width 13.3 % (11.5-14.5); White Blood Cell Count 11.1 10^3/uL (4.8-10.8)
[2024-05-06 08:30] LABS: Blood Urea Nitrogen 21 mg/dl (9-20); Calcium 9.1 mg/dl (8.4-10.2); Carbon Dioxide 28 mmol/L (22-30); Chloride 104 mmol/L (98-107); Estimated Creatinine Clearance 63 ml/min; Glucose 105 mg/dl (70-99); Sodium 140 mmol/L (135-145); eGFR > 60.00
[2024-05-06] MEDS: THERAGRAN 1 TABLET PO (09:02)
[2024-05-06] MEDS: COLACE 100 MG PO ×2 (09:03→21:21)
[2024-05-06] MEDS: TYLENOL 1000 MG PO ×3 (09:03→21:21)
[2024-05-06] MEDS: ELIQUIS 5 MG PO ×2 (09:03→21:21)
[2024-05-06] MEDS: MAXIPIME IV (09:04)
[2024-05-06] MEDS: STERILE WATER FOR INJECTION IV (09:06)
--- NOTE | 2024-05-06 09:07 | W.PN.ORTHO ---
Today's Communication / Plan
-
POD #1 s/p left patella ORIF.
-Knee immobilizer at all times.
-WBAT in knee immobilizer and walker.
-PT/OT to tolerance.
-Continue current pain regimen.
-Eliquis to resume this morning.
-Appreciate case management's efforts in d/c planning. Will await PT recommendations for d/c.
-F/u in office in 2 weeks for staple removal and repeat x-rays
Assessment
.
Distal Motor Intact: Yes
Dressing:
Clean, dry and intact.
Assessment:
POD #1 s/p left patella ORIF.
-Knee immobilizer at all times.
-WBAT in knee immobilizer and walker.
-PT/OT to tolerance.
-Continue current pain regimen.
-Eliquis to resume this morning.
-Appreciate case management's efforts in d/c planning. Will await PT recommendations for d/c.
-F/u in office in 2 weeks for staple removal and repeat x-rays.
Plan
.
Surgery / Date: L patella ORIF 05/05/2024 - Dr. Spicer
DVT Prophylaxis: Other
Activity:
Out of bed.
PT/OT
Subjective
.
.:
Patient resting comfortably in bed. Reports mild discomfort about the knee. Has maintained knee immobilizer.
Vital Signs and Labs
.
Vital Signs and Labs:
Lab Results
05/06/24 05:57
05/06/24 05:57
Temp Pulse Resp BP Pulse Ox
98.2 F 82 20 171/92 98
05/06/24 07:40 05/06/24 07:40 05/06/24 07:40 05/06/24 07:40 05/06/24 07:40
Physical Exam
-
Left knee: immobilizer in place. Dressing is c/d/i. Minimal TTP over anterior knee. Able to wiggle toes and move ankle without pain. N/v intact distally.
--- NOTE | 2024-05-06 11:11 | W.PN.HOSP.TC ---
Today's Communication/Plan
-
.
Assessment / Plan
Assessment / Plan
Physical Exam
General: Comfortable, not in distress. No Fever or Chills
HEENT: Normocephalic, sutures intact to forehead that were placed on 04/30/2024)
Respiratory: Clear; No Wheezes, Rales or Rhonchi
Cardiac: S1/S2
GI: Soft, Non Tender, Non Distended and Normal Bowel Sounds
Genito-urinary: No flank tenderness
Musculoskeletal: No Clubbing, No Cyanosis and Edema, Left Lower Extremity (Left knee in immobilizer.
Skin: Warm, Dry and Other (Sutures intact to forehead); No Rash
Neuro: AAOX3, followed commands.
Psych: Calm
# #Recent mechanical fall with left patellar fracture
Had a fall was on 04/30/2024, visited ER in [place] where he was visiting.
CT showed displaced acute comminuted patellar fracture. Small suprapatellar joint effusion. Mild lateral compartment chondrocalcinosis.
s/p Left patella ORIF by Dr loya on 05/05. No complications reported
#Change in mental status due to toxic encephalopathy from lack of sleep, dehydration
now back to baseline
Family denied seizure or loss of consciousness
Patient denied headache
CT head no acute abnormalities.
#Mechanical fall 05/01/2024 with forehead laceration and suture repair
Sutures to be removed to forehead approximately 3 to 5 days(05/06 - 05/09/2024)
# Fever and leukocytosis
Likely reactive or viral syndrome
Urine and blood cultures are NGTD
WBC is normal
Placed empirically on Cefepime but stopped after 48 hour doses.
Negative COVID
-CXR negative
# History of pulmonary embolism.
Eliquis was held for possible need for orthopedic surgery. He was started on IV heparin
. Stopped IV heparin if no need for surgical intervention
Patient was scheduled to finish Eliquis treatment on May 26(3 months after diagnosis of PE following a fall patient saw oncologist with [facility]) They want to follow-up with local oncologist. Advised to [facility] appointment with [facility]
and transferrin documents to their office before their first visit with [facility].
Resumed Eliquis in 05/06 AM, ok with ortho.
#Hypokalemia-euvolemic
resolved with KCl.
#JENNIFER
creatinine normalized.
Denies flank pain or hematuria.
Seemed not CKD history, ruled out
s/p IVF
# Hyponatremia, resolved.
# Hypokalemia, resolved.
# Mild acute blood loss anemia
#Episodes of apnea while at rest
Monitor nocturnal pulse ox
Recommend outpatient sleep study eval
#HTN�benign
Uncontrolled this morning , added PRN 5 mg amlodipine.
resumed home medications.
#HLD
-Continue pravastatin 40 mg daily upon dc
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
-Patient takes daily hormonal therapy Abiraterone acetate to 50 mg 3 times daily along with prednisone 5 mg daily for the last 7 years
He follows at [facility]
Bladder scan was around 200cc. I asked nursing staff to keep checking.
DVT prophylaxis
Continue [employer]TER Eliquis
Full code
Total time spent to see the patient, examine the patient, review data and lab results, and discuss the treatment plan with patient, ortho doctor, and nurse around 57 minutes
Anticipated Discharge: 24 - 48 hours
Subjective/Interval History
-
Date of Service: May 06, 2024
No chest pain
No sob
No fevers
Objective Data
-
Labs:
Laboratory Results
05/06/24
05:57
WBC 11.1 H
Hgb 10.8 L
Hct 31.8 L
Plt Count 262
Sodium 140
Potassium 4.0
Chloride 104
Carbon Dioxide 28
BUN 21 H
Creatinine 0.8
Glucose 105 H
Calcium 9.1
Vital Signs:
Vital Signs
Temp Pulse Resp BP Pulse Ox
98.2 F 82 20 171/92 98
05/06/24 07:40 05/06/24 07:40 05/06/24 07:40 05/06/24 07:40 05/06/24 10:34
I&O
05/05/24 05/06/24 05/07/24
06:59 06:59 06:59
Intake Total 240 / 240 580 / 580
Output Total 1375 / 1375
Balance 240 / 240 -795 / -795
[2024-05-06 11:39] VITALS: BP 144/71
[2024-05-06 13:58] VITALS: BP 130/73; BP 155/68; PULSE 72; O2SAT 98
[2024-05-06 15:16] VITALS: BP 137/66
[2024-05-06] MEDS: NORVASC 5 MG PO (17:03)
[2024-05-06] MEDS: NON-FORMULARY ITEM 750 MG PO (17:03)
[2024-05-06] MEDS: PRAVACHOL 40 MG PO (21:21)
[2024-05-06] MEDS: DELTASONE 5 MG PO (21:21)
[2024-05-06] MEDS: ZESTRIL 20 MG PO (21:24)
[2024-05-06 23:37] VITALS: BP 135/91
[2024-05-07 05:58] VITALS: BMI 28.1
[2024-05-07 07:45] VITALS: BP 159/78
[2024-05-07 08:46] VITALS: BP 151/77; PULSE 83; O2SAT 96
[2024-05-07 08:47] VITALS: BP 157/77; PULSE 83; O2SAT 97
[2024-05-07] MEDS: TYLENOL 1000 MG PO ×3 (09:25→21:41)
[2024-05-07] MEDS: ELIQUIS 5 MG PO ×2 (09:26→21:41)
[2024-05-07] MEDS: THERAGRAN 1 TABLET PO (09:26)
[2024-05-07] MEDS: COLACE 100 MG PO ×2 (09:27→21:41)
--- NOTE | 2024-05-07 10:14 | W.PN.ORTHO ---
Today's Communication / Plan
-
Appreciate the primary team, continue treatment
Dispo per CM, appreciate their efforts
Continue WBAT LLE in knee immobilizer
KI may be loosened while in bed for elevation and icing purposes
PT/OT
Eliquis for DVT PPx
Dressings to remain 2 weeks
Outpatient Ortho follow-up in 2 weeks for staple removal and x-rays
Assessment
.
Distal Motor Intact: Yes
Dressing:
Clean, dry and intact. Dressing in place left knee, knee immobilizer in place
Assessment:
POD#2 Left patella ORIF
Overall doing/feeling well
Calf soft, nontender
Plan
.
Surgery / Date: Left patella ORIF May 16 (Dannielle)
DVT Prophylaxis: Other ( Eliquis)
Activity:
Out of bed. WBAT, knee immobilizer on when OOB. May be loosened in bed to elevate and ice
PT/OT
Discharge Plan: Other (per CM)
Subjective
.
.:
Patient seated comfortably in the bedside chair. not much left knee pain
Vital Signs and Labs
.
Vital Signs and Labs:
Temp Pulse Resp BP Pulse Ox
98.4 F 79 18 159/78 96
05/07/24 07:45 05/07/24 07:45 05/07/24 07:45 05/07/24 07:45 05/07/24 07:45
[2024-05-07 10:30] LABS: Blood Urea Nitrogen 19 mg/dl (9-20); Calcium 9.4 mg/dl (8.4-10.2); Carbon Dioxide 26 mmol/L (22-30); Chloride 104 mmol/L (98-107); Estimated Creatinine Clearance 63 ml/min; Glucose 105 mg/dl (70-99); Potassium 3.5 mmol/L (3.5-5.1); Sodium 138 mmol/L (135-145); eGFR > 60.00
--- NOTE | 2024-05-07 12:08 | W.PN.HOSP.TC ---
Today's Communication/Plan
-
medically stable for dc to SNF pending auth
Assessment / Plan
Assessment / Plan
Assessment:
recent mechanical fall with left patellar fracture
- s/p L patella ORIF 05/05
- Continue WBAT LLE in knee immobilizer
- DVT ppx: Eliquis
- dressing x 2 weeks, OP Ortho f/u in 2 weeks for X-ray/staple removal
TME from lack of sleep, dehydration, anesthesia
- resolved, mentation back to baseline
- CT head negative
Mechanical fall 05/01/2024 with forehead laceration and suture repair
- s/p suturing, removal due later this week
Fever and leukocytosis
- most likely reactive
- Urine/blood cultures negative. COVID negative
Hx of PE
- continue Eliquis
- OP Hematology follow up
Hypokalemia
- improved with replacement
JENNIFER
- resolved with IVF
Hyponatremia, resolved.
Mild acute blood loss anemia
Episodes of apnea while at rest
- monitor nocturnal pulse ox
- recommend outpatient sleep study eval
Essential HTN
- continue Amlodipine/Lisinopril
HLD
- continue pravastatin 40 mg daily
Prostate cancer stage IV with mets to spine Dx 7 years ago
- Patient takes daily hormonal therapy Abiraterone acetate to 50 mg 3 times daily along with prednisone 5 mg daily for the last 7 years
- He follows at [facility]
- continue prn bladder scans
DVT prophylaxis: Eliquis
Code: Full
Anticipated Discharge: Within 24 hours
Subjective/Interval History
-
Date of Service: May 07, 2024
pain controlled, denies any new complaints
Objective Data
-
Labs:
Laboratory Results
05/07/24
09:15
WBC Pending
Hgb Pending
Hct Pending
Plt Count Pending
Sodium 138
Potassium 3.5
Chloride 104
Carbon Dioxide 26
BUN 19
Creatinine 0.8
Glucose 105 H
Calcium 9.4
Vital Signs:
Vital Signs
Temp Pulse Resp BP Pulse Ox
98.4 F 79 18 159/78 96
05/07/24 07:45 05/07/24 07:45 05/07/24 07:45 05/07/24 07:45 05/07/24 07:45
I&O
05/06/24 05/07/24 05/08/24
06:59 06:59 06:59
Intake Total 580 / 580 840 / 840
Output Total 1375 / 1375 1650 / 1650
Balance -795 / -795 -810 / -810
Physical Exam
-
General: No Apparent Distress
HEENT: Normocephalic and Atraumatic
Respiratory: Negative Wheezes
Cardiac: Regular Rhythm and S1/S2
GI: Soft
Musculoskeletal: Other (L knee immobilizer/dressing)
Neuro: AO x 3
Hematologic / Lymphatic: No Lymphadenopathy
Psych: Calm
Data Reviewed
-
Total Time Spent with Patient (in minutes): 43
Labs: Labs Reviewed by me
[2024-05-07 12:24] LABS: Hemoglobin 11.5 g/dL (13.0-18.0); Mean Corp Hgb Conc. 33.8 g/dL (33.0-37.0); Mean Corpuscular Hgb 30.1 pg (27.0-31.0); Mean Platelet Volume 11.4 fL (7.4-10.4); Platelet Count 319 10^3/uL (130-400); Red Blood Cell Count 3.82 10^6/uL (4.70-6.10); Red Cell Dist. Width 13.5 % (11.5-14.5); White Blood Cell Count 10.7 10^3/uL (4.8-10.8)
--- NOTE | 2024-05-07 14:32 | PN.CDI ---
CDI
- -
CDI:
Physician Documentation Request
Admit Date: 05/03/24 18:33
Dear Doctor Boston,
Please review the following and provide your response in the progress notes.
Clinical Indicators:
Pt admitted with displaced left patella knee fracture/TME/ JENNIFER
Progress note 05/07, ' Fever and leukocytosis ...'
On admission WBC 18.5, Tmax 102.1 , RR 29 ,HR 95
Please clarify which most accurately describes the patient:
SIRS due to a non-infectious source with Acute Organ Dysfunction
Fever and leukocytosis only
Other ( please specify)
Use of terms such as suspected, likely, concern for, or probable (associated with a specific diagnosis that is being evaluated, monitored, or treated as if it exists) are acceptable and can be coded in the inpatient setting, when documented at the
time of discharge.
Thank you,
Abbi Beasley RN
CDI Specialist
[facility]
Please use your independent medical judgment in providing your response.
--- NOTE | 2024-05-07 15:06 | CM ---
Addendum entered by Ana Paula Herrera 05/08/24 10:19:
correction please call report to [phone]/fax [phone]
Addendum entered by Ana Paula Herrrea 05/08/24 10:10:
please call report [phone]
Original Note:
Patient accepted to [facility] and Per Jemma they will start auth. CM updated patient and she is in agreement. Pending authorization patient to go to SNF at [facility]. CM will continue to follow for discharge planning needs.
Plan; SNF; [facility] pending auth
[2024-05-07 15:31] VITALS: BP 132/85
[2024-05-07] MEDS: NON-FORMULARY ITEM 750 MG PO (17:19)
[2024-05-07] MEDS: NORVASC 5 MG PO (17:19)
[2024-05-07] MEDS: ZESTRIL 20 MG PO (21:41)
[2024-05-07] MEDS: DELTASONE 5 MG PO (21:41)
[2024-05-07] MEDS: PRAVACHOL 40 MG PO (21:41)
[2024-05-07 23:36] VITALS: BP 145/93
[2024-05-08 06:00] VITALS: BMI 27.6
[2024-05-08 07:35] VITALS: BP 159/98
--- NOTE | 2024-05-08 08:10 | W.PN.HOSP.TC ---
Today's Communication/Plan
-
dc to SNF today
Assessment / Plan
Assessment / Plan
Assessment:
recent mechanical fall with left patellar fracture
- s/p L patella ORIF 05/05
- Continue WBAT LLE in knee immobilizer
- DVT ppx: Eliquis
- dressing x 2 weeks, OP Ortho f/u in 2 weeks for X-ray/staple removal
TME from lack of sleep, dehydration, anesthesia
- resolved, mentation back to baseline
- CT head negative
Mechanical fall 05/01/2024 with forehead laceration and suture repair
- s/p suturing, removed today prior to DC
Fever and leukocytosis only
- most likely reactive
- no concern for sepsis syndrome
- Urine/blood cultures negative. COVID negative
Hx of PE
- continue Eliquis
- OP Hematology follow up
Hypokalemia
- improved with replacement
JENNIFER
- resolved with IVF
Hyponatremia, resolved.
Mild acute blood loss anemia
Episodes of apnea while at rest
- monitor nocturnal pulse ox
- recommend outpatient sleep study eval
Essential HTN
- continue Amlodipine/Lisinopril
HLD
- continue pravastatin 40 mg daily
Prostate cancer stage IV with mets to spine Dx 7 years ago
- Patient takes daily hormonal therapy Abiraterone acetate to 50 mg 3 times daily along with prednisone 5 mg daily for the last 7 years
- He follows at [facility]
- continue prn bladder scans
DVT prophylaxis: Eliquis
Code: Full
More than 30 minutes spent in discharge including
Final examination of the patient
Summarizing hospital stay
Instructions for continuing care to all relevant caregivers
Preparation of discharge records, prescriptions, and referral forms
Total time spent (in minutes): 41
Anticipated Discharge: Today
Subjective/Interval History
-
Date of Service: May 08, 2024
no new complaints presently
Objective Data
-
Vital Signs:
Vital Signs
Temp Pulse Resp BP Pulse Ox
98.2 F 95 20 145/93 95
05/07/24 23:36 05/07/24 23:36 05/07/24 23:36 05/07/24 23:36 05/07/24 23:36
I&O
05/07/24 05/08/24 05/09/24
06:59 06:59 06:59
Intake Total 840 / 840 1380 / 1380
Output Total 1650 / 1650 1800 / 1800
Balance -810 / -810 -420 / -420
Physical Exam
-
General: No Apparent Distress
HEENT: Normocephalic and Atraumatic
Respiratory: Negative Wheezes
Cardiac: Regular Rhythm and S1/S2
GI: Soft
Musculoskeletal: No Edema
Neuro: AO x 3
Hematologic / Lymphatic: No Lymphadenopathy
Psych: Calm
Data Reviewed
-
Total Time Spent with Patient (in minutes): 42
Labs: Labs Reviewed by me
--- NOTE | 2024-05-08 08:26 | W.PN.UPDATE ---
Update Note
Progress Note Update
Patient doing/feeling well this AM. KI in place. The plan as follows:
Appreciate the primary team, continue treatment
Dispo per CM, appreciate their efforts
Continue WBAT LLE in knee immobilizer
KI may be loosened while in bed for elevation and icing purposes
PT/OT
Eliquis for DVT PPx
Dressings to remain 2 weeks
Outpatient Ortho follow-up in 2 weeks for staple removal and x-rays
Ortho to sign off for now, please reengage with any pertinent questions prior to D/c as necessary
[2024-05-08] MEDS: COLACE 100 MG PO (08:51)
[2024-05-08] MEDS: THERAGRAN 1 TABLET PO (08:52)
[2024-05-08] MEDS: ELIQUIS 5 MG PO (08:52)
[2024-05-08] MEDS: TYLENOL 1000 MG PO (08:52)
--- NOTE | 2024-05-08 10:41 | W.DS.TRANS ---
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
-
Discharge Instructions:
Discharge Diagnosis/Procedures Mechanical fall with L patellar fracture s/p
ORIF on 05/05
Diet Regular
Activity With assistance,As tolerated,Other activity
Additional Activity on walker. KI to remain when ambulatory. KI to
sleep. May be loosened while sedentary for icing
purposes (while awake)
Bathing Restrictions OK to Shower
Other Services PT,OT
Instructions:
Stand-Alone Forms:
Changes to Home Medications: No
Discharge Medications:
DC Medications w/original date entered in [facility]
abiraterone 250 mg tablet 750 mg PO QPM Cancer 05/03/24
amlodipine 5 mg tablet 5 mg PO HS Blood Pressure 05/03/24
apixaban 5 mg tablet (Eliquis) 5 mg PO BID Blood Clot Prevention/Tx 05/03/24
lisinopril 20 mg tablet 20 mg PO HS Blood Pressure 05/03/24
pravastatin 80 mg tablet 40 mg PO HS High Cholesterol 05/03/24
prednisone 5 mg tablet 5 mg PO HS Anti-Inflammatory 05/03/24
sennosides 8.6 mg tablet (Senokot) 8.6 mg PO DAILY Constipation 05/03/24
therapeutic multivitamin 1 tab PO DAILY Supplement 05/03/24
acetaminophen 500 mg tablet (Tylenol Extra Strength) 1,000 mg (2 x 500 mg) PO TID #100 tabs 05/08/24
oxycodone 5 mg tablet 5 mg PO Q4HPRN PRN mod to severe pain #10 tabs 05/08/24
Home Medication Changes
Pending Results: No
Total time spent discharging patient (in min): 41
[2024-05-08 12:37] VITALS: BP 136/91
== END 2024-05-08 13:15 | DRG 515 ==
LOC: 4 EAST ACU 18:33
PROVIDERS: Clinical Nurse Specialist Family Health; Emergency Medicine; Orthopaedic Surgery; ADMITTING PHYSICIAN Internal Medicine; ATTENDING PHYSICIAN Internal Medicine; CONSULT PHYSICIAN Orthopaedic Surgery; EMERGENCY PHYSICIAN Emergency Medicine; FAMILY PHYSICIAN Nurse Practitioner Family; OTHER PHYSICIAN Internal Medicine Critical Care Medicine
PROC: 0QSF04Z Reposition Left Patella with Internal Fixation Device, Open Approach (ICD-10-PCS; 2024-05-05)
DX: S82.032A Displaced transverse fracture of left patella, initial encounter for closed fracture (principal); G92.8 Other toxic encephalopathy; C79.51 Secondary malignant neoplasm of bone; N17.9 Acute kidney failure, unspecified; E87.1 Hypo-osmolality and hyponatremia; D62 Acute posthemorrhagic anemia; I10 Essential (primary) hypertension; R06.81 Apnea, not elsewhere classified; C61 Malignant neoplasm of prostate; M11.262 Other chondrocalcinosis, left knee; M25.462 Effusion, left knee; W01.198A Fall on same level from slipping, tripping and stumbling with subsequent striking against other object, initial encounter; E86.0 Dehydration; R63.8 Other symptoms and signs concerning food and fluid intake; E78.5 Hyperlipidemia, unspecified; E87.6 Hypokalemia; D72.829 Elevated white blood cell count, unspecified; R50.9 Fever, unspecified; R53.1 Weakness; T41.45XA Adverse effect of unspecified anesthetic, initial encounter; Z72.820 Sleep deprivation; Z99.89 Dependence on other enabling machines and devices; Z91.81 History of falling; Z86.711 Personal history of pulmonary embolism; Z87.81 Personal history of (healed) traumatic fracture; Z79.01 Long term (current) use of anticoagulants; Z79.52 Long term (current) use of systemic steroids; Z79.899 Other long term (current) drug therapy; Z11.52 Encounter for screening for COVID-19
CPT/HCPCS: 70450; 71045; 73560; 73564; 73700; 76000; 80048; 80053; 80061; 81003; 81015; 82962; 85025; 85027; 87040; 87086; 87811; 93005; 96360; 97167; 97530; 97535; 99285